=== PATIENT | female | born 1955 | race Caucasian/White ===

== ENCOUNTER → 2016-07-23 | Outpatient (CLI) | payer OTHER ==
[2014-12-20 13:25] VITALS: BP 137/90
[~2016-07-23] MED LIST: ALBU0.63 NEB; AZEL6DRO2 EACHEYE; BUPR1PAT2 TD; CHOL20004 PO; CONTRAST GIVEN MC PRN; DOCU-27 PO; GABA-585 PO; IOHEXOL 240 MG/ML 50ML VIAL. PO ONE; IOHEXOL 300 MG/ML 75 ML VIAL IV ONE; MOME13HF IH
--- NOTE | 2016-07-23 13:11 | RAD ---
CT of the chest, abdomen and pelvis with contrast, 07/23/2016: History: Lung cancer restaging Multidetector CT imaging was performed following oral and IV administration of contrast. Comparison is made to a study from 01/23/2016. There are streaky parenchymal opacities in the right suprahilar region medially with associated atelectasis and traction bronchiectasis. These findings are unchanged and presumably predominantly represent post therapeutic scarring. No new or enlarging pulmonary opacities are seen. The left chest remains clear. There is no evidence of pleural fluid. No mediastinal adenopathy is seen. There is mild calcific plaquing of the thoracic aorta. The heart is of normal size. The gallbladder is surgically absent. There is fatty change in the liver. No hepatic mass is evident. The pancreas shows no abnormality. The spleen is of normal size. No renal or adrenal abnormality is detected. There is moderate aortoiliac calcific plaquing. No abdominal or pelvic adenopathy is seen. The uterus is unremarkable. There is a moderate amount of stool scattered throughout the colon. Several colonic diverticula are noted. The bowel loops are not dilated. No free fluid or free air is evident in the abdomen or pelvis. IMPRESSION: 1. Stable right upper lobe volume loss and streaky parenchymal opacities most compatible with scarring on a post therapeutic basis. 2. No definite evidence of tumor recurrence or metastatic disease. 3. Hepatic steatosis. PQRS Compliance Statement: One or more of the following individualized dose reduction techniques were utilized for this examination: 1. Automated exposure control 2. Adjustment of the mA and/or kV according to patient size 3. Use of iterative reconstruction technique
== END | disposition home or self-care (01) ==
LOC: CT 08:53
PROVIDERS: ATTEND Internal Medicine Hematology & Oncology
DX: C34.11 Malignant neoplasm of upper lobe, right bronchus or lung (principal); K76.0 Fatty (change of) liver, not elsewhere classified; K57.30 Diverticulosis of large intestine without perforation or abscess without bleeding
CPT/HCPCS: 71260; 74177; Q9966; Q9967

== ENCOUNTER → 2017-01-22 | Outpatient (CLI) | payer OTHER, MEDICARE ==
[2014-12-20 13:25] VITALS: BP 137/90
[~2017-01-22] MED LIST changes: -BUPR1PAT2 TD; +BUPR1PAT8 TD; -CHOL20004 PO; +CHOL200074 PO; +DOCU-109 PO; -DOCU-27 PO; +IOHEXOL 300 MG/ML 100ML VIAL. IV ONE; -IOHEXOL 300 MG/ML 75 ML VIAL IV ONE
--- NOTE | 2017-01-22 14:16 | RAD ---
Examination: CT chest abdomen pelvis with contrast History: History of malignant neoplasm on the right upper lobe of the lung, follow-up exam Comparison: 07/23/2016 Technique: Axial CT images of the chest abdomen pelvis were performed with IV contrast. Coronal and sagittal reformats are performed PQRS Compliance Statement: One or more of the following individualized dose reduction techniques were utilized for this examination: 1. Automated exposure control 2. Adjustment of the mA and/or kV according to patient size 3. Use of iterative reconstruction technique fracture Findings: The visualized thyroid gland grossly appears unremarkable. The central airways are patent. The heart size grossly appears unremarkable. Parenchymal opacity identified in the right suprahilar region likely atelectasis and bronchiectasis grossly similar to prior exam probably representing posttherapeutic changes. No new lung mass identified. No radiologically significant mediastinal lymphadenopathy identified. There is mild decreased attenuation noted throughout the liver likely hepatic steatosis. The visualized spleen, adrenals grossly appears unremarkable. Cholecystectomy is identified. The stomach is mildly distended. The visualized pancreas grossly appears unremarkable. The small bowel is nondilated. The appendix is normal. Feces and gas noted throughout the colon. Urinary bladder is mildly distended. Few sigmoid colon diverticulosis. The visualized uterus, adnexa grossly appears unremarkable. Bilateral kidneys enhance symmetrically. Moderate aortic atherosclerosis. No evidence of lytic bony destructive lesion. Impression: 1. Unchanged right upper lobe volume loss with streaky parenchymal opacity likely postoperative changes or scarring. 2. No CT evidence of recurrence or metastasis. 3. Hepatic steatosis.
== END | disposition home or self-care (01) ==
LOC: CT 15:40
PROVIDERS: ATTEND Internal Medicine Hematology & Oncology
DX: C34.11 Malignant neoplasm of upper lobe, right bronchus or lung (principal); K76.0 Fatty (change of) liver, not elsewhere classified; J44.9 Chronic obstructive pulmonary disease, unspecified; I10 Essential (primary) hypertension; Z87.891 Personal history of nicotine dependence
CPT/HCPCS: 71260; 74177; Q9966; Q9967

== ENCOUNTER → 2017-01-28 | Outpatient (CLI) | payer OTHER, MEDICARE ==
[2014-12-20 13:25] VITALS: BP 137/90
[~2017-01-28] MED LIST changes: -CONTRAST GIVEN MC PRN; -IOHEXOL 240 MG/ML 50ML VIAL. PO ONE; -IOHEXOL 300 MG/ML 100ML VIAL. IV ONE
--- NOTE | 2017-01-28 15:00 | KCIC ---
DATE: 01/28/2017 EXAM: MAMMO MASOOD SCREENING BILATERAL HISTORY: Routine screening COMPARISON: 11/27/2015 This study was interpreted with the benefit of Computerized Aided Detection (CAD). The breast parenchyma shows scattered fibroglandular densities. Breast parenchyma level B. FINDINGS: 2-D and 3-D tomosynthesis imaging was performed in CC and MLO projections. No new or enlarging breast densities are seen. There are stable microcalcifications in both breasts. No suspicious microcalcifications have developed. IMPRESSION: Stable mammograms without evidence of malignancy. BI-RADS CATEGORY: 2 BENIGN FINDING(S) RECOMMENDED FOLLOW-UP: 12M 12 MONTH FOLLOW-UP PQRS compliance statement: Patient information was entered into a reminder system with a target due date for the next mammogram. Mammography is a sensitive method for finding small breast cancers, but it does not detect them all and is not a substitute for careful clinical examination. A negative mammogram does not negate a clinically suspicious finding and should not result in delay in biopsying a clinically suspicious abnormality. "Our facility is accredited by the [employer] Mammography [employer]."
== END | disposition home or self-care (01) ==
LOC: KCIC MAMMO 13:41
PROVIDERS: ATTEND Obstetrics & Gynecology
DX: Z12.31 Encounter for screening mammogram for malignant neoplasm of breast (principal)
CPT/HCPCS: 77063; G0202; 77067

== ENCOUNTER → 2018-02-02 | Outpatient (CLI) | payer OTHER, MEDICARE ==
[2014-12-20 13:25] VITALS: BP 137/90
--- NOTE | 2018-02-02 15:55 | RAD ---
EXAM: CT Chest without IV contrast CLINICAL HISTORY: Lung cancer staging COMPARISON: 01/22/2017 TECHNIQUE: CT of the chest without intravenous contrast. Axial, coronal and sagittal reformatted images were generated. ---PQRS compliance statement - One or more of the following individualized dose reduction techniques were utilized for this study: 1. Automated exposure control 2. Adjustment of the mA and/or kV according to patient size 3. Use of iterative reconstruction technique--- FINDINGS: Lack of intravenous contrast limits evaluation of solid organs, vasculature, and lymph nodes. Chest: The heart is not enlarged. Coronary artery calcifications are seen. No pericardial effusion. Within the constraints of noncontrast examination, there is no thoracic lymphadenopathy. Right paramediastinal soft tissue thickening with bronchiectasis likely from known lung cancer. When compared to prior CT from 01/22/2017, this is in general grossly stable in extent, without new superimposed nodularity or masslike appearance and compared to 07/23/2016 is slightly less conspicuous. Otherwise, no definite lung nodule or mass is seen. No pleural effusion or pneumothorax. Visualized Upper abdomen: Relative hepatic hypoattenuation may be seen with hepatic steatosis. Cholecystectomy clips are seen. Upper abdomen is otherwise unremarkable. Bones: Osseous structures are unremarkable. IMPRESSION: 1. Right paramediastinal post-therapeutic changes are seen, grossly stable to prior CT 01/22/2017. 2. No thoracic lymphadenopathy. Electronically signed by: Zeke Busby MD (02/02/2018 3:51 PM) [facility]
== END | disposition home or self-care (01) ==
LOC: CT 10:42
PROVIDERS: ATTEND Internal Medicine Hematology & Oncology
DX: C34.11 Malignant neoplasm of upper lobe, right bronchus or lung (principal); I25.10 Atherosclerotic heart disease of native coronary artery without angina pectoris; Z88.5 Allergy status to narcotic agent; Z90.49 Acquired absence of other specified parts of digestive tract; Z87.891 Personal history of nicotine dependence
CPT/HCPCS: 71250

== ENCOUNTER → 2018-08-19 | Outpatient (CLI) | payer OTHER ==
[2014-12-20 13:25] VITALS: BP 137/90
[2018-08-19 13:59] LABS: BASO % 1 % (0-3); EOS # 0.2 x10^3/uL (0.0-0.7); EOS % 3 % (0-3); HEMATOCRIT 38.8 % (36.0-47.0); HEMOGLOBIN 13.4 g/dL (12.0-15.5); LYMPH # 1.7 x10^3/uL (1.0-4.8); LYMPH % 27 % (24-48); MEAN CORPUSCULAR HEMOGLOBIN 32 pg (25-35); MEAN CORPUSCULAR HGB CONC 35 g/dL (31-37); MEAN CORPUSCULAR VOLUME 92 fL (79-100); MONO # 0.4 x10^3/uL (0.0-1.1); MONO % 6 % (0-9); NEUT # 3.9 x10^3uL (1.8-7.7); NEUT % 62 % (31-73); PLATELET COUNT 257 x10^3/uL (140-400); RED BLOOD COUNT 4.23 x10^6/uL (3.50-5.40); RED CELL DISTRIBUTION WIDTH 14.5 % (11.5-14.5); WHITE BLOOD COUNT 6.2 x10^3/uL (4.0-11.0)
[2018-08-19 14:34] LABS: ALBUMIN 3.6 g/dL (3.4-5.0); CALCIUM 9.2 mg/dL (8.5-10.1); CREATININE 1.1 mg/dL (0.6-1.0); GFR 50.5; POTASSIUM 4.6 mmol/L (3.5-5.1); TOTAL BILIRUBIN 0.5 mg/dL (0.2-1.0); TOTAL PROTEIN 7.1 g/dL (6.4-8.2)
== END | disposition home or self-care (01) ==
LOC: LAB 13:22
PROVIDERS: ATTEND Psychiatry & Neurology Neurology
DX: R26.81 Unsteadiness on feet (principal); R53.1 Weakness
CPT/HCPCS: 80053; 82550; 82607; 83519; 83520; 84443; 85025; 84238

== ENCOUNTER → 2018-08-30 | Outpatient (CLI) | payer OTHER ==
[2014-12-20 13:25] VITALS: BP 137/90
[~2018-08-30] MED LIST changes: +GADOTERATE 7.5 MMOL/15ML VIAL. IVP ONE
--- NOTE | 2018-08-30 16:28 | RAD ---
MRI Thoracic Spine without and with contrast History: Gait instability. Technique: Multiplanar, multi sequential MR imaging was performed of the thoracic spine was performed without and with contrast. Contrast: 18 mL Dotarem. Comparison: Lumbar spine MRI July 26, 2018. Chest CT January 22, 2017 Findings: Normal vertebral body height and alignment. No fracture. Normal appearance of the thoracic spinal cord. No pathologic signal abnormality or enhancement. Mild multilevel degenerative disc disease with small posterior disc protrusions at T8-T9 and T9-T10. Mild cord flattening at T8-T9. No canal narrowing. No neural foraminal narrowing. Multilevel lower cervical spondylosis partially imaged. Right upper lobe opacity, unchanged compared to prior chest CT. Impression: 1. Mild thoracic spondylosis. No significant canal or neuroforaminal narrowing. 2. Multilevel lower cervical spondylosis, partially imaged. 3. Right upper lobe consolidation/atelectasis, unchanged compared to prior chest CT. Electronically signed by: Roshan Gaviria DO (08/30/2018 4:25 PM) [id number]
--- NOTE | 2018-08-30 16:46 | RAD ---
MRI Lumbar Spine with and without contrast History: Gait instability. Technique: Multiplanar, multi sequential MR imaging was performed of the lumbar spine with and without contrast. Contrast: 18 mL Dotarem. Comparison: July 26, 2018 Findings: Normal vertebral body height and alignment. No fracture. Conus terminates at the normal location. No evidence of nerve root clumping. No pathologic enhancement. L1-L2: No canal or neuroforaminal narrowing. L2-L3: No canal or neuroforaminal narrowing. L3-L4: No canal or neuroforaminal narrowing. L4-L5: No canal or neuroforaminal narrowing. Mild facet arthropathy with facet joint effusions. L5-S1: No canal or neuroforaminal narrowing. Mild facet arthropathy. Prominent epidural fat. Impression: 1. Mild multilevel lumbar spondylosis. No significant canal or neural foraminal narrowing. No pathologic enhancement. Electronically signed by: Roshan Gaviria DO (08/30/2018 4:43 PM) [id number]
== END | disposition home or self-care (01) ==
LOC: MRI 14:26
PROVIDERS: ATTEND Psychiatry & Neurology Neurology
DX: C34.90 Malignant neoplasm of unspecified part of unspecified bronchus or lung (principal); M51.34 Other intervertebral disc degeneration, thoracic region; M47.813 Spondylosis without myelopathy or radiculopathy, cervicothoracic region; M47.816 Spondylosis without myelopathy or radiculopathy, lumbar region
CPT/HCPCS: 72157; 72158; A9575

== ENCOUNTER → 2019-01-10 | Outpatient (CLI) | payer OTHER, MEDICARE ==
[2014-12-20 13:25] VITALS: BP 137/90
[~2019-01-10] MED LIST changes: -GADOTERATE 7.5 MMOL/15ML VIAL. IVP ONE
--- NOTE | 2019-01-10 15:56 | KCIC ---
EXAM: Bilateral digital screening mammogram with tomosynthesis. HISTORY: 63-year-old female presents for screening mammography. TECHNIQUE: Full-field digital craniocaudal and mediolateral oblique 2D and 3D tomosynthesis images of both breasts are obtained for evaluation. Computer aided detection with [employer] software version 9.3 was applied. COMPARISON: 01/28/2017 BREAST PARENCHYMAL DENSITY: Level B - Scattered fibroglandular densities. FINDINGS: There is no new suspicious mass, microcalcification or region of architectural distortion. There is stable areas of asymmetry and nodularity within both breasts, allowing for differences in imaging technique. There are multiple benign calcifications. IMPRESSION: BI-RADS Category 2: Benign finding(s). RECOMMENDATION: Annual mammography is recommended. If your mammogram demonstrates that you have dense breast tissue, which could hide abnormalities, and if you have other risk factors for breast cancer that have been identified, you might benefit from supplemental screening tests that may be suggested by your ordering physician. Dense breast tissue, in and of itself, is a relatively common condition. This information is not provided to cause undue concern, but rather to raise your awareness and to promote discussion with your physician regarding the presence of other risk factors, in addition to dense breast tissue. A report of your mammography results will be sent to you and your physician. You should contact your physician if you have any questions or concerns regarding this report. Mammography is a sensitive method for finding small breast cancers, but it does not detect them all and is not a substitute for careful clinical examination. A negative mammogram does not negate a clinically suspicious finding and should not result in delay in biopsying a clinically suspicious abnormality. PQRS compliance statement - Patient information was entered into a reminder system with a target due date for the next mammogram. "Our facility is accredited by the [employer] Mamm[employer]." Electronically signed by: Carmen Mason MD (01/10/2019 3:53 PM) [id number]
== END | disposition home or self-care (01) ==
LOC: KCIC MAMMO 14:28
PROVIDERS: ATTEND Family Medicine
DX: Z12.31 Encounter for screening mammogram for malignant neoplasm of breast (principal); N64.89 Other specified disorders of breast
CPT/HCPCS: 77063; 77067

== ENCOUNTER → 2019-01-26 | Outpatient (CLI) | payer OTHER, MEDICARE ==
[2014-12-20 13:25] VITALS: BP 137/90
--- NOTE | 2019-01-26 18:11 | RAD ---
CT chest without contrast PQRS statement: CT scans at this facility use dose reduction including either automated exposure control, iterative reconstructions, and /or weight based radiation dosing via mA and kV modification when appropriate to reduce radiation dose to as low as reasonably achievable. HISTORY: Malignant neoplasm right upper lobe, lung cancer. COMPARISON: CT chest February 02, 2018. FINDINGS: Heart size normal. Calcified plaque thoracic aorta. Pulmonary vessels and esophagus are unremarkable. No enlarged adenopathy in the chest. Right upper lobe marked volume loss and bandlike fibrosis typical of radiation treatment is stable, there is no increased collapse of the lobe or new opacity or masslike lesion to suggest local recurrence and there is no cutoff of the right upper lobe bronchus surrounded by the fibrosis. No new pulmonary opacities or nodules. No pleural effusions. Bones are unremarkable. 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 No evidence of local recurrence or metastatic disease. Electronically signed by: Gonzalo Pyle MD (01/26/2019 6:08 PM) [facility]
== END | disposition home or self-care (01) ==
LOC: CT 09:36
PROVIDERS: ATTEND Internal Medicine Hematology & Oncology
DX: C34.11 Malignant neoplasm of upper lobe, right bronchus or lung (principal); I70.0 Atherosclerosis of aorta
CPT/HCPCS: 71250

== ENCOUNTER → 2019-08-17 | Outpatient (CLI) | payer MEDICARE, OTHER ==
[2014-12-20 13:25] VITALS: BP 137/90
--- NOTE | 2019-08-17 11:08 | RAD ---
CT scan of the chest without contrast 08/17/2019 CLINICAL HISTORY: History of lung cancer. TECHNIQUE: Unenhanced, contiguous, 5 mm axial sections were obtained through the chest and upper abdomen. One or more of the following individualized dose reduction techniques were utilized for this study: 1. Automated exposure control. 2. Adjustment of the mA and/or kV according to patient size. 3. Use of iterative reconstruction technique. FINDINGS: Comparison study is dated 01/26/2019. Mild to moderate scattered atherosclerotic plaque formation is seen involving the thoracic aorta and its branches. The thoracic aorta is mildly tortuous but tapers normally. The heart is normal in size. No hilar, mediastinal or axillary lymphadenopathy is noted. Volume loss of the right upper lobe is again seen. Atelectasis and/or scarring is seen involving the medial aspect of the right upper lobe consistent with radiation treatment changes. These findings are unchanged. No recurrent mass is seen. No pulmonary nodule is noted. No new area of consolidation, pleural effusion or pneumothorax is seen. Images through the upper abdomen demonstrate atherosclerotic calcification of the abdominal aorta. The liver parenchyma has a decreased attenuation consistent with fatty infiltration. Surgical clips are seen within the gallbladder fossa consistent with a cholecystectomy. Minimal S-shaped curvature of the thoracolumbar spine is seen. Degenerative changes are seen involving the thoracic spine. IMPRESSION: Stable postradiation treatment changes involving the right upper lobe. No recurrent mass or metastatic disease is seen. Electronically signed by: Vignesh Uriarte MD (08/17/2019 11:06 AM) [place] [id number]
== END | disposition home or self-care (01) ==
LOC: CT 08:57
PROVIDERS: ATTEND Family Medicine
DX: M47.814 Spondylosis without myelopathy or radiculopathy, thoracic region (principal); M43.8X5 Other specified deforming dorsopathies, thoracolumbar region; R22.2 Localized swelling, mass and lump, trunk; I70.0 Atherosclerosis of aorta; Q25.46 Tortuous aortic arch
CPT/HCPCS: 71250

== ENCOUNTER → 2020-01-25 | Outpatient (CLI) | payer OTHER ==
[2014-12-20 13:25] VITALS: BP 137/90
--- NOTE | 2020-01-25 16:37 | RAD ---
CT THORAX WO INDICATION: Reason: R LUNG NEOPLASM / Spl. Instructions: / History: . COMPARISON STUDY: 08/17/2019. TECHNIQUE: Unenhanced axial images were obtained through the lungs and upper abdomen. Coronal and sa gittal multiplanar reconstructions were also obtained. PQRS compliance statement: One or more of the following individualized dose reduction techniques were utilized for this examinat ion: 1. Automated exposure control 2. Adjustment of the mA and/or kV according to patient size 3. Use of iterative reconstruction technique FINDINGS: Lungs and Airways: Stable right suprahilar bandlike opacity with volume loss, architectural distortio n, and traction bronchiectasis. Normal central airways. Pleura: The pleural spaces are normal. Heart and Mediastinum: The visualized thyroid gland is normal in size and attenuation. No axillary or supraclavicular lymphadenopathy. No mediastinal, hilar or retrocrural lymphadenopathy. The heart and pericardium are within normal limits. The great vessels of the thorax are normal. Abdomen: Cholecystectomy. Bones and Soft Tissues: The visualized skeletal structures and soft tissues of the chest wall are wit hin normal limits. IMPRESSION: Stable right lung posttreatment changes. No evidence of recurrent or metastatic disease. Electronically signed by: Eduardo Grant MD (01/25/2020 4:34 PM) [id number]
== END ==
LOC: CT 12:40
PROVIDERS: ATTEND Internal Medicine Hematology & Oncology
DX: C34.11 Malignant neoplasm of upper lobe, right bronchus or lung (principal); Z90.49 Acquired absence of other specified parts of digestive tract
CPT/HCPCS: 71250